=== PATIENT | female | born 1970 | race Two or more races ===

== ENCOUNTER → 2024-09-16 | Outpatient (CLI) | payer BC, SELFPAY ==
[2024-09-16 15:14] LABS: Hematocrit 39.1 % (37-47); Hemoglobin 12.9 g/dL (12.0-15.0); Immature Granulocytes Count 0.020 X10^3/uL (0.0-0.0); Mean Corp Hgb Conc 33.0 g/dL (32-36); Mean Corpuscular Volume 89.5 fL (81-99); Mean Platelet Vol. 10.6 fl (6.2-12.0); NRBC Flagged by Analyzer 0 % (0-5); Platelet Count 267 K/mm3 (150-450); RBC Distribution Width CV 12.5 % (11.6-14.6); RBC Distribution Width SD 40.7 fl (35.1-43.9); Red Blood Count 4.37 M/mm3 (4.2-5.4); White Blood Count 6.0 K/mm3 (4.4-11.0)
[2024-09-16 15:47] LABS: AST(SGOT) 19 U/L (<=31); Alanine Aminotransfer ALT/SGPT 13 U/L (<=34); Albumin, Serum 4.4 g/dL (3.5-5.0); Alkaline Phosphatase 71 U/L (35-104); Anion Gap 13 (5-15); BUN 15 mg/dL (4-19); BUN/Creat Ratio 20.6 RATIO (10-20); Calcium,Total 9.5 mg/dL (7.6-11.0); Carbon Dioxide 24.5 mmol/L (21.0-32.0); Chloride 103 mmol/L (98-108); Globulin 3.3 g/dL (2.2-4.2); Glucose 104 mg/dL (70-99); Potassium 3.7 mmol/L (3.3-5.1); Vitamin B12 584 pg/mL (180-914); Vitamin D,25 Hydroxy 38.8 ng/mL (30-100)
== END | disposition home or self-care (01) ==
LOC: MFPLAB 11:56
PROVIDERS: PCP Family Medicine; Referring Provider Family Medicine; Visit Provider Family Medicine
DX: R73.09 Other abnormal glucose (principal); R53.83 Other fatigue
CPT/HCPCS: 36415; 80053; 82306; 82607; 83036; 84439; 84443; 85025

== ENCOUNTER → 2024-10-20 | Outpatient (CLI) | payer BC, SELFPAY ==
--- NOTE | 2024-10-20 16:05 | BI_ITS ---
EXAM: SCRN MAMM (CAD)W/ELENA BILAT DATE: 10/20/2024 CLINICAL HISTORY: F, Age 54 y/o , SCREENING Sister with breast cancer. TECHNIQUE: SCRN MAMM (CAD)W/ELENA BILAT COMPARISON: No prior studies available for comparison at this time. FINDINGS: TISSUE DENSITY: The breasts are heterogeneously dense, which may obscure small masses. Bilateral Breast Mammographic Findings: No significant masses, calcifications or other abnormalities are identified. Small benign-appearing bilateral axillary lymph nodes. No suspicious masses, areas of developing architectural distortion, or suspicious calcifications. BI/SCRN MAMM (CAD)W/ELENA BILAT IMPRESSION: Negative mammogram. OVERALL FINAL ASSESSMENT BI-RADS 2: BENIGN RECOMMENDATION: Routine annual follow-up in 1 Year A letter with findings and recommendations will be mailed to the patient. Reading Location: [id number]
--- NOTE | 2024-10-20 16:07 | BD_ITS ---
PROCEDURE: DEXA BONE DENSITY STUDY 10/20/2024 REASON FOR EXAM: F, age 54 y/o . Postmenopausal. TECHNIQUE: DEXA BONE DENSITY STUDY COMPARISON: None FINDINGS: BMD and T-SCORES Lumbar spine: 0.998 g/cm2, T-score -0.4 Levels: L1 through L4 Left femoral neck: 0.728 g/cm2, T-score -1.1 Femoral neck comparison data not recommended for monitoring change. Left total hip: 0.859 g/cm2, T-score -0.7 Right femoral neck: 0.781 g/cm2, T-score -0.6 Femoral neck comparison data not recommended for monitoring change. Right total hip: 0.863 g/cm2, T-score -0.6 The World Health Organization has defined the following categories based on bone density: Normal bone density: T-score equal to or greater than -1.0 Osteopenia: T-score between -1.0 and -2.5 Osteoporosis: T-score equal to or less than -2.5 FRAX (or Comparable) Fracture Risk Assessment: 10 Year Probability of Fracture: Major Osteoporotic Fracture: 5.7% Hip Fracture: 0.3% (Note: FRAX is not to be reported in setting of normal range bone density, osteoporosis on DEXA, known history of osteoporosis, prior osteoporotic hip or vertebral fracture, or for any patient undergoing pharmacological treatment for bone loss.) The National Osteoporosis Foundation (NOF) recommends pharmacological treatment for patients with a FRAX 10-year risk of 3% or higher for a hip fracture, or 20% or higher for a major osteoporotic fracture, to prevent osteoporosis and reduce fracture risk. The patient does not meet the pharmacological treatment recommendations for prevention of osteoporosis. BD/Dexa Bone Density Study IMPRESSION: OSTEOPENIA. Recommend follow-up as clinically warranted. Reading Location: [facility]
== END | disposition home or self-care (01) ==
LOC: OPBD 16:03
PROVIDERS: PCP Family Medicine; Referring Provider Nurse Practitioner Family; Visit Provider Nurse Practitioner Family
DX: Z12.31 Encounter for screening mammogram for malignant neoplasm of breast (principal); Z78.0 Asymptomatic menopausal state
CPT/HCPCS: 77063; 77067; 77080

== ENCOUNTER → 2024-10-20 | Outpatient (CLI) | payer BC, SELFPAY ==
[2024-10-20 13:18] LABS: Cholesterol 214 mg/dL (<=200); Low Density Lipoprotein Calc. 143 mg/dL; Triglycerides 91 mg/dL; Very Low Density Lipoprotein 18 mg/dL (5-40); cholesterol:hdl ratio screen 4.07
--- OUTSIDE RECORDS SUMMARY | 2024-10-20 13:40 | XMS RPT_ITS | CCD ---
Author Organization [facility] Care Team Providers Care Ink Printer Name Role Phone Selam ZIMMERMAN, Dr. Justino Flower Primary Care Provider Selam ZIMMERMAN, Dr. Justino Flower Attending Provider Selam ZIMMERMAN, Dr. Justino Flower Referring Provider Justino Doss Primary Care Unavailable Steve HIM TECH, Ada Referring Unavailable Steve HIM TECH, Ada Attending Unavailable Justino Doss Referring Unavailable Justino Dsos Attending Unavailable Justino Doss Primary Care Unavailable Medications Current Medications Medication Drug Class(es) Dates Sig (Normalized) Sig (Original) azithromycin 250 mg oral tablet (1 source) Macrolide Antimicrobial Start: 4 Azithromycin 250 mg tablet Active 250 mg PO daily 6 0 September 21, 2023 12:00am 2 tablets today, then 1 tablet daily on days 2 through 5 benzonatate 100 mg oral capsule (1 source) Non-narcotic Antitussive Start: 4 take 1 capsule by mouth three times daily as needed for cough Benzonatate 100 mg capsule Active 100 mg PO THREE TIMES A DAY as needed for cough 20 0 September 21, 2023 12:00am methylPREDNISolone 4 mg oral tablet (1 source) Corticosteroid Start: 4 take 1 tablet by mouth once Methylprednisolone (Medrol (Brannon)) 4 mg tablets,dose pack Active 0 PO per package directions 21 September 21, 2023 12:00am PO PER PKG DIR Problems Problem Classification Problem Date Documented Da te Episodic/Chronic Diabetes mellitus without complication (1 source) Other abnormal glucose; Translations: [Other abnormal glucose] Onset: 09-21-2024 Episodic Other screening for suspected conditions (not mental disorders or infectious disease) (1 source) Encounter for screening mammogram for malignant neoplasm of breast; Translations: [Encounter for screening mammogram for malignant neoplasm of breast] Onset: 10-15-2024 Episodic Unclassified (1 source) Patient condition finding 09-21-2023 Results Test Name Value Interpretation Reference Range Facility Hemoglobin A1con 09-17-2024 HbA1c (Bld) [Mass fraction] 5.9 % High <=5.6 [facility] Comment on above: Order Comment: SHANNON Flower ADD A1C TO BLOOD DRAWN 09/16/24 PER Result Comment: Norm al < 5.7 % Prediabetic 5.7 - 6.4 % Diabetic >or= 6.5 % Please note range changes. Performed By: #### L 503.0106, L501.9985, L506.1001 #### [facility] [address] [place], [address] Absolute lymphocyte countOrd ered By: Justino Doss on 09-16-2024 Lymphocytes Auto (Unsp spec) [#/Vol] 2.31 10*3/uL 0.83-4.51 [facility] Absolute neutrophil countOrd ered By: Justino Doss on 09-16-2024 Neutrophils (Bld) [#/Vol] 2.8 10*3/uL 2.0-7.7 [facility] Anion gap in Serum or Plasma Ordered By: Justino Doss on 09-16-2024 Anion gap [Moles/Vol] 13 mmol/L 5-15 [facility] Automated lymphocyte count a s percentage of total leukocytesOrdered By: Justino Doss on 09-16-2024 Lymphocytes/100 WBC Auto (Unsp spec) 38.5 % 19-41 [facility] BUN/creatinine ratioOrdered By: Justino Doss on 09-16-2024 Urea nitrogen/Creatinine [Mass ratio] 20.6 mg/mg High 10-20 [facility] Basophil percentageOrdered B y: Justino Doss on 09-16-2024 Basophils/100 WBC (Bld) 0.5 % 0-1 [facility] Bilirubin, totalOrdered By: Justino Doss on 09-16-2024 Bilirubin [Mass/Vol] 0.38 mg/dL 0.00-1.30 [facility] CBC W/Diff, Automatedon 07- Absolute Lymph 2.31 X10 3/uL Normal 0.83-4.51 [facility] Comment on above: Order Comment: Order Date: 09/16/24 Order Info: 0184-1 - CBCD Performed By: #### L [id number], L500.4050, L506.0400, L100.0100 #### [facility] [address] [place], [address] Absolute Neut 2.8 X10 3/uL Normal 2.0-7.7 [facility] Comment on above: Order Comment: Order Date: 09/16/24 Order Info: 0184-1 - CBCD Performed By: #### L [id number], L500.4050, L506.0400, L100.0100 #### [facility] [address] [place], [address] Basophils/100 WBC (Bld) 0.5 % Normal 0-1 [facility] Comment on above: Order Comment: Order Date: 09/16/24 Order Info: 0184-1 - CBCD Performed By: #### L [id number], L500.4050, L506.0400, L100.0100 #### [facility] [address] [place], [address] Eosinophils/100 WBC (Bld) 4.7 % Normal 0-5 [facility] Comment on above: Order Comment: Order Date: 09/16/24 Order Info: 0184-1 - CBCD Performed By: #### L [id number], L500.4050, L506.0400, L100.0100 #### [facility] [address] [place], [address] Erythrocyte distribution width (RBC) [Ratio] 12.5 % Normal 11.6-14.6 [facility] Comment on above: Order Comment: Order Date: 09/16/24 Order Info: 0184-1 - CBCD Performed By: #### L [id number], L500.4050, L506.0400, L100.0100 #### [facility] [address] [place], [address] Hematocrit (Bld) [Volume fraction] 39.1 % Normal 37-47 [facility] Comment on above: Order Comment: Order Date: 09/16/24 Order Info: 0184-1 - CBCD Performed By: #### L [id number], L500.4050, L506.0400, L100.0100 #### [facility] [address] [place], [address] Hemoglobin (Bld) [Mass/Vol] 12.9 g/dL Normal 12.0-15.0 [facility] Comment on above: Order Comment: Order Date: 09/16/24 Order Info: 0184-1 - CBCD Performed By: #### L [id number], L500.4050, L506.0400, L100.0100 #### [facility] [address] [place], [address] IG% 0.300 Normal 0.0-0.9 [facility] Comment on above: Order Comment: Order Date: 09/16/24 Order Info: 0184-1 - CBCD Result Comment: IG% - Immature Granulocytes (promyelocytes, myelocytes and metamyelocytes) > 1% indicates that a LEFT SHIFT is Present. Performed By: #### L 501.9520, L500.4050, L506.0400, L100.0100 #### [facility] [address] [place], [address] Lymphocytes/100 WBC (Bld) 38.5 % Normal 19-41 [facility] Comment on above: Order Comment: Order Date: 09/16/24 Order Info: 0184-1 - CBCD Performed By: #### L [id number], L500.4050, L506.0400, L100.0100 #### [facility] [address] [place], [address] MCH (RBC) [Entitic mass] 29.5 pg Normal 27.0-32.0 [facility] Comment on above: Order Comment: Order Date: 09/16/24 Order Info: 0184-1 - CBCD Performed By: #### L 501.9520, L500.4050, L506.0400, L100.0100 #### [facility] [address] [place], [address] MCHC (RBC) [Mass/Vol] 33.0 g/dL Normal 32-36 [facility] Comment on above: Order Comment: Order Date: 09/16/24 Order Info: 0184-1 - CBCD Performed By: #### L [id number], L500.4050, L506.0400, L100.0100 #### [facility] [address] [place], [address] MCV (RBC) [Entitic vol] 89.5 fL Normal 81-99 [facility] Comment on above: Order Comment: Order Date: 09/16/24 Order Info: 0184- - CBCD Performed By: #### L 501.9520, L500.4050, L506.0400, L100.0100 #### [facility] [address] [place], [address] Monocytes/100 WBC (Bld) 9.7 % Normal 0-10 [facility] Comment on above: Order Comment: Order Date: 09/16/24 Order Info: 0184-1 - CBCD Performed By: #### L 501.9520, L500.4050, L506.0400, L100.0100 #### [facility] [address] [place], [address] Neutrophils/100 WBC (Bld) 46.3 % Low 47-70 [facility] Comment on above: Order Comment: Order Date: 09/16/24 Order Info: 0184-1 - CBCD Performed By: #### L 501.9520, L500.4050, L506.0400, L100.0100 #### [facility] [address] [place], [address] Nucleated RBC (Bld) [#/Vol] 0 10*3/uL Normal 0-5 [facility] Comment on above: Order Comment: Order Date: 09/16/24 Order Info: 0184-1 - CBCD Performed By: #### L 501.9520, L500.4050, L506.0400, L100.0100 #### [facility] [address] [place], [address] Platelet mean volume (Bld) [Entitic vol] 10.6 fL Normal 6.2-12.0 [facility] Comment on above: Order Comment: Order Date: 09/16/24 Order Info: 0184-1 - CBCD Performed By: #### L 501.9520, L500.4050, L506.0400, L100.0100 #### [facility] [address] [place], [address] Platelets (Bld) [#/Vol] 267 10*3/uL Normal 150-450 [facility] Comment on above: Order Comment: Order Date: 09/16/24 Order Info: 0184-1 - CBCD Performed By: #### L 501.9520, L500.4050, L506.0400, L100.0100 #### [facility] [address] [place], [address] RBC (Bld) [#/Vol] 4.37 10*6/uL Normal 4.2-5.4 [facility] Comment on above: Order Comment: Order Date: 09/16/24 Order Info: 0184-1 - CBCD Performed By: #### L 501.9520, L500.4050, L506.0400, L100.0100 #### [facility] [address] [place], [address] RDW SD 40.7 fl Normal 35.1-43.9 [facility] Comment on above: Order Comment: Order Date: 09/16/24 Order Info: 0184-1 - CBCD Performed By: #### L 501.9520, L500.4050, L506.0400, L100.0100 #### [facility] [address] [place], [place], [id number] WBC (Bld) [#/Vol] 6.0 10*3/uL Normal 4.4-11.0 [facility] Comment on above: Order Comment: Order Date: 09/16/24 Order Info: 0184-1 - CBCD Performed By: #### L 501.9520, L500.4050, L506.0400, L100.0100 #### [facility] [address] [place], [place], [id number] Carbon dioxide, total [Moles /volume] in Central venous bloodOrdered By: Justino Doss on 09-16-2024 CO2 [Moles/Vol] 24.5 mmol/L 21.0-32.0 [facility] Chloride assayOrdered By: Amalia Doss on 09-16-2024 Chloride [Moles/Vol] 103 mmol/L 98-108 [facility] Comprehensive Metabolic Prof ilon 09-16-2024 Albumin [Mass/Vol] 4.4 g/dL Normal 3.5-5.0 [facility] Comment on above: Order Comment: Order Date: 09/16/24 Order Info: 0786-1 - CMP Order Info: 3016-3 - TSH Order Info: 3024-7 - T4F Performed By: #### L 501.9520, L500.4050, L506.0400, L100.0100 #### [facility] [address] [place], [address] Albumin/Globulin [Mass ratio] 1.3 {ratio} Normal 0.9-2.4 [facility] Comment on above: Order Comment: Order Date: 09/16/24 Order Info: 07861 - CMP Order Info: 3 - TSH Order Info: 3024-7 - T4F Performed By: #### L 501.9520, L500.4050, L506.0400, L100.0100 #### [facility] [address] [place], [address] ALK PHOS 71 U/L Normal 35-104 [facility] Comment on above: Order Comment: Order Date: 09/16/24 Order Info: 0786-1 - CMP Order Info: 3 - TSH Order Info: 4-7 - T4F Performed By: #### L 501.9520, L500.4050, L506.0400, L100.0100 #### [facility] [address] [place], [address] ALT [Catalytic activity/Vol] 13 U/L Normal <=34 [facility] Comment on above: Order Comment: Order Date: 09/16/24 Order Info: 0786 - CMP Order Info: 3 - TSH Order Info: 47 - T4F Performed By: #### L 501.9520, L500.4050, L506.0400, L100.0100 #### [facility] [address] [place], [address] AST [Catalytic activity/Vol] 19 U/L Normal <=31 [facility] Comment on above: Order Comment: Order Date: 09/16/24 Order Info: 0786-1 - CMP Order Info: 3015-3 - TSH Order Info: 3024-7 - T4F Performed By: #### L 501.9520, L500.4050, L506.0400, L100.0100 #### [facility] [address] [place], [address] Bilirubin [Mass/Vol] 0.38 mg/dL Normal 0.00-1.30 [facility] Comment on above: Order Comment: Order Date: 09/16/24 Order Info: 0786-1 - CMP Order Info: 3015-3 - TSH Order Info: 3024-7 - T4F Performed By: #### L 501.9520, L500.4050, L506.0400, L100.0100 #### [facility] [address] [place], [address] BUN/CRE 20.6 RATIO High 10-20 [facility] Comment on above: Order Comment: Order Date: 09/16/24 Order Info: 0786-1 - CMP Order Info: 6-3 - TSH Order Info: 3024-7 - T4F Performed By: #### L 501.9520, L500.4050, L506.0400, L100.0100 #### [facility] [address] [place], [address] Calcium [Mass/Vol] 9.5 mg/dL Normal 7.6-11.0 [facility] Comment on above: Order Comment: Order Date: 09/16/24 Order Info: 0786-1 - CMP Order Info: 3 - TSH Order Info: 3024-7 - T4F Performed By: #### L 501.9520, L500.4050, L506.0400, L100.0100 #### [facility] [address] [place], [address] Chloride [Moles/Vol] 103 mmol/L Normal 98-108 [facility] Comment on above: Order Comment: Order Date: 09/16/24 Order Info: 0786-1 - CMP Order Info: 6-3 - TSH Order Info: 3024-7 - T4F Performed By: #### L 501.9520, L500.4050, L506.0400, L100.0100 #### [facility] [address] [place], [address] CO2 [Moles/Vol] 24.5 mmol/L Normal 21.0-32.0 [facility] Comment on above: Order Comment: Order Date: 09/16/24 Order Info: 0786-1 - CMP Order Info: 3 - TSH Order Info: 3024-7 - T4F Performed By: #### L 501.9520, L500.4050, L506.0400, L100.0100 #### [facility] [address] [place], [address] Creatinine [Mass/Vol] 0.75 mg/dL Normal 0.70-1.20 [facility] Comment on above: Order Comment: Order Date: 09/16/24 Order Info: 785-1 - CMP Order Info: 3 - TSH Order Info: 7 - T4F Performed By: #### L 501.9520, L500.4050, L506.0400, L100.0100 #### [facility] [address] [place], [address] GAP 13 Normal 5-15 [facility] Comment on above: Order Comment: Order Date: 09/16/24 Order Info: 0786-1 - CMP Order Info: 3 - TSH Order Info: 7 - T4F Performed By: #### L 501.9520, L500.4050, L506.0400, L100.0100 #### [facility] [address] [place], [address] GFR/1.73 sq M.predicted among non-blacks MDRD (S/P/Bld) [Vol rate/Area] 95 mL/min/{1.73_m2} Normal >60 [facility] Comment on above: Order Comment: Order Date: 09/16/24 Order Info: 0786-1 - CMP Order Info: 6-3 - TSH Order Info: 3024-7 - T4F Result Comment: mL/m in/1.73m2 CKD-EPI Creatinine Equation (2020) Performed By: #### L 501.9520, L500.4050, L506.0400, L100.0100 #### [facility] [address] [place], [address] Globulin (S) [Mass/Vol] 3.3 g/dL Normal 2.2-4.2 [facility] Comment on above: Order Comment: Order Date: 09/16/24 Order Info: 07- - CMP Order Info: 3 - TSH Order Info: 3027 - T4F Performed By: #### L 501.9520, L500.4050, L506.0400, L100.0100 #### [facility] [address] [place], [address] Glucose [Mass/Vol] 104 mg/dL High 70-99 [facility] Comment on above: Order Comment: Order Date: 09/16/24 Order Info: 785-02 - CMP Order Info: 3015-04 - TSH Order Info: 7 - T4F Performed By: #### L 501.9520, L500.4050, L506.0400, L100.0100 #### [facility] [address] [place], [address] Potassium [Moles/Vol] 3.7 mmol/L Normal 3.3-5.1 [facility] Comment on above: Order Comment: Order Date: 09/16/24 Order Info: 07 - CMP Order Info: 3 - TSH Order Info: 3027 - T4F Performed By: #### L 501.9520, L500.4050, L506.0400, L100.0100 #### [facility] [address] [place], [address] Sodium [Moles/Vol] 140 mmol/L Normal 133-145 [facility] Comment on above: Order Comment: Order Date: 09/16/24 Order Info: 07-1 - CMP Order Info: 3015-04 - TSH Order Info: 3024-7 - T4F Performed By: #### L 501.9520, L500.4050, L506.0400, L100.0100 #### [facility] [address] [place], [place], [id number] T PROT 7.7 g/dL Normal 5.9-8.4 [facility] Comment on above: Order Comment: Order Date: 09/16/24 Order Info: 0786-1 - CMP Order Info: 3016-3 - TSH Order Info: 3024-7 - T4F Performed By: #### L 501.9520, L500.4050, L506.0400, L100.0100 #### [facility] [address] [place], [place], [address] Urea nitrogen [Mass/Vol] 15 mg/dL Normal 4-19 [facility] Comment on above: Order Comment: Order Date: 09/16/24 Order Info: 0786-1 - CMP Order Info: 3016-3 - TSH Order Info: 30247 - T4F Performed By: #### L 501.9520, L500.4050, L506.0400, L100.0100 #### [facility] [address] [place], [place], [address] Eosinophil percentageOrdered By: Justino Doss on 09-16-2024 Eosinophils/100 WBC (Bld) 4.7 % 0-5 [facility] Erythrocyte distribution wid th ratioOrdered By: Justino Doss on 09-16-2024 Erythrocyte distribution width (RBC) [Ratio] 12.5 % 11.6-14.6 [facility] Erythrocyte distribution wid th standard deviationOrdered By: Justino Doss on 09-16-2024 Erythrocyte distribution width (RBC) [Ratio] 40.7 fl 35.1-43.9 [facility] Glomerular filtration rate ( GFR) estimation/1.73 sq m using serum, plasma, or whole bOrdered By: uJstino Doss on 09-16-2024 GFR/1.73 sq M.predicted among non-blacks MDRD (S/P/Bld) [Vol rate/Area] 95 mL/min/{1.73_m2} >60 [facility] Comment on above: mL/min/1.73m2 CKD-EP I Creatinine Equation (2020) Hematocrit Auto (Bld) [Volum e fraction]Ordered By: Justino Doss on 09-16-2024 Hematocrit (Bld) [Volume fraction] 39.1 % 37-47 [facility] Hemoglobin A1c percentageOrd ered By: Justino Doss on 09-16-2024 HbA1c (Bld) [Mass fraction] 5.9 % High <5.7 [facility] Comment on above: Normal < 5.7 % Predi abetic 5.7 - 6.4 % Diabetic >or= 6.5 % Please note range changes. Hemoglobin measurementOrdere d By: Justino Doss on 09-16-2024 Hemoglobin (Bld) [Mass/Vol] 12.9 g/dL 12.0-15.0 [facility] Immature granulocytes/100 WB C Auto (Bld)Ordered By: Justino Doss on 09-16-2024 Immature granulocytes/100 WBC (Bld) 0.300 % 0.0-0.9 [facility] Comment on above: IG% - Immature Granu locytes (promyelocytes, myelocytes and metamyelocytes) > 1% indicates that a LEFT SHIFT is Present. Laboratory - Chemistry and C hemistry - challengeOrdered By: Justino Doss on 09-16-2024 AST [Catalytic activity/Vol] 19 U/L <32 [facility] MCV (mean corpuscular volume ) determinationOrdered By: Justino Doss on 09-16-2024 MCV (RBC) [Entitic vol] 89.5 fL 81-99 [facility] Mean corpuscular hemoglobin (MCH) determinationOrdered By: Justino Doss on 09-16-2024 MCH (RBC) [Entitic mass] 29.5 pg 27.0-32.0 [facility] Mean corpuscular hemoglobin concentration (MCHC) determinationOrdered By: Justino Doss on 09-16-2024 MCHC (RBC) [Mass/Vol] 33.0 g/dL 32-36 [facility] Mean platelet volume determi nationOrdered By: Justino Doss on 09-16-2024 Platelet mean volume (Bld) [Entitic vol] 10.6 fL 6.2-12.0 [facility] Monocyte percentageOrdered B y: Justino Doss on 09-16-2024 Monocytes/100 WBC (Bld) 9.7 % 0-10 [facility] Neutrophil percentageOrdered By: Justino Doss on 09-16-2024 Neutrophils/100 WBC (Bld) 46.3 % Low 47-70 [facility] Nucleated red blood cell per centageOrdered By: Justino Doss on 09-16-2024 Nucleated RBC/100 WBC (Bld) [Ratio] 0 % 0-5 [facility] Platelet countOrdered By: Amalia Doss on 09-16-2024 Platelets (Bld) [#/Vol] 267 10*3/uL 150-450 [facility] Potassium measurement (mass/ volume)Ordered By: Justino Doss on 09-16-2024 Potassium (Unsp spec) [Mass/Vol] 3.7 mmol/L 3.3-5.1 [facility] RBC Auto (Bld) [#/Vol]Ordere d By: Justino Doss on 09-16-2024 RBC (Bld) [#/Vol] 4.37 10*6/uL 4.2-5.4 [facility] Serum creatinine measurement (mass/volume)Ordered By: Justino Doss on 09-16-2024 Creatinine [Mass/Vol] 0.75 mg/dL 0.70-1.20 [facility] Serum globulin measurementOr dered By: Justino Doss on 09-16-2024 Globulin (S) [Mass/Vol] 3.3 g/dL 2.2-4.2 [facility] Serum glucose measurement (m ass/volume)Ordered By: Justino Doss on 09-16-2024 Glucose [Mass/Vol] 104 mg/dL High 70-99 [facility] Serum or plasma alanine fischer otransferase (ALT) measurementOrdered By: Justino Doss on 09-16-2024 ALT [Catalytic activity/Vol] 13 U/L <35 [facility] Serum or plasma albumin tamika urement (mass/volume)Ordered By: Justino Doss on 09-16-2024 Albumin [Mass/Vol] 4.4 g/dL 3.5-5.0 [facility] Serum or plasma albumin/glob ulin mass ratioOrdered By: Justino Doss on 09-16-2024 Albumin/Globulin [Mass ratio] 1.3 {ratio} 0.9-2.4 [facility] Serum or plasma alkaline sherine sphatase measurementOrdered By: Justino Doss on 09-16-2024 ALP [Catalytic activity/Vol] 71 U/L 35-104 [facility] Serum or plasma calcium tamika urement (mass/volume)Ordered By: Justino Doss on 09-16-2024 Calcium [Mass/Vol] 9.5 mg/dL 7.6-11.0 [facility] Serum or plasma urea nitroge n measurement (mass/volume)Ordered By: Justino Doss on 09-16-2024 Urea nitrogen [Mass/Vol] 15 mg/dL 4-19 [facility] Sodium levelOrdered By: Justino Doss on 09-16-2024 Sodium [Moles/Vol] 140 mmol/L 133-145 [facility] T4 Free Directon 09-16-2024 T4 FREE DIRECT 1.20 ng/dL Normal 0.76-1.46 [facility] Comment on above: Order Comment: Order Date: 09/16/24 Order Info: 0786-1 - CMP Order Info: 3016-3 - TSH Order Info: 3024-7 - T4F Performed By: #### L 501.9520, L500.4050, L506.0400, L100.0100 #### [facility] [place], [address] T4 freeOrdered By: Justino reddy on 09-16-2024 Free T4 [Mass/Vol] 1.20 ng/dL 0.76-1.46 [facility] TSH DL <= 0.005 mIU/L QnOrde red By: Justino Doss on 09-16-2024 TSH Qn 2.100 uIU/mL 0.300-4.200 [facility] Thyroid Stim Hormone (TSH)on 09-16-2024 TSH 2.100 uIU/mL Normal 0.300-4.200 [facility] Comment on above: Order Comment: Order Date: 09/16/24 Order Info: 0786-1 - CMP Order Info: 3016-3 - TSH Order Info: 3024-7 - T4F Performed By: #### L 501.9520, L500.4050, L506.0400, L100.0100 #### [facility] [address] [place], [address] Total proteinOrdered By: Henok Doss on 09-16-2024 Protein [Mass/Vol] 7.7 g/dL 5.9-8.4 [facility] Vitamin B12on 09-16-2024 Cobalamin (Vitamin B12) [Mass/Vol] 584 pg/mL Normal 180-914 [facility] Comment on above: Order Comment: Order Date: 09/16/24 Order Info: 07861 - CMP Order Info: 3015-04 - TSH Order Info: 3023-08 - T4F Performed By: #### L 503.0106, L501.9985, L506.1001 #### [facility] [address] [place], [address] Vitamin B12 ser/plasOrdered By: Justino Doss on 09-16-2024 Cobalamin (Vitamin B12) [Mass/Vol] 584 pg/mL 180-914 [facility] Vitamin D,25 Hydroxyon 09-16 Vitamin D 25-OH 38.8 ng/mL Normal 30-100 [facility] Comment on above: Order Comment: Order Date: 09/16/24 Order Info: 0786-1 - CMP Order Info: 3 - TSH Order Info: 3023-08 - T4F Result Comment: Danay min D Status Deficiency: <20 ng/mL (50nmol/L) Insufficiency: 20-30 ng/mL (50-75 nmol/L) Sufficiency: 30-100 ng/mL (75-250 nmol/L) Toxicity: >100 ng/mL (>250 nmol/L) Performed By: #### L 503.0106, L501.9985, L506.1001 #### [facility] [address] [place], [address] White blood cell (WBC) count Ordered By: Justino Doss on 09-16-2024 WBC (Bld) [#/Vol] 6.0 10*3/uL 4.4-11.0 [facility] Encounters Encounter Date Encounter Type Care Provider Facility Start: 10-20-2024 ambulatory Justino Doss Facilit y:[facility] Start: 09-16-2024 End: 09-16-[address] Justino Doss MD Work Phone: -Laboratory [facility] Start: 09-16-2024 End: 09-16-[address] Justino Doss MD -Laboratory [facility] Start: 09-16-2024 End: 09-16-2024 ambulatory Justino Doss Facility:[facility] Procedures Date Procedure Procedure Detail Performing Clinician Start: 09-16-2024 Vitamin D, 25-hydrox y measurement Dr. Justino Doss MD Work Phone: Comment on above: Vitamin D StatusDefi ciency: <20 ng/mL (50nmol/L)Insufficiency: 20-30 ng/mL (50-75 nmol/L)Sufficiency: 30-100 ng/mL (75-250 nmol/L)Toxicity: >100 ng/mL (>250 nmol/L) Payers Date Payer Category Payer Self-pay 2024 Unknown [id number] Unknown [id number] Unknown [id number] Social History Date Type Detail Facility Start: 09-21-2023 Tobacco smoking stat us SDIS Never smoked tobacco (finding) [facility] Start: 1970 Sex Assigned At Female [facility] Evaluation note Note Date & Type Note Facility Evaluation note No assessment information availa ble [facility] Work Phone: Reason for referral (narrative) Note Date & Type Note Facility Reason for referral (narrative) No reason for referral information available [facility] Work Phone: Summary Purpose Family History No Family History Records Found Advance Directives No Advanced Directives Records Found Additional Source Comments Care Teams (unrecognized sec tion and content) Team Status: Active Member Role/Relationship Status Dates Dr. Justino Doss MD Primary Care Provider Active Team Status: Inactive Member Role/Relationship Status Dates Dr. Justino Doss MD Primary Care Provider Active Start: September 16, 2024 End: September 16, 2024 Dr. Justino Doss MD Attending Provider Active Start: September 16, 2024 End: September 16, 2024 Dr. Justino Doss MD Referring Provider Active Start: September 16, 2024 End: September 16, 2024 Goals (unrecognized section and content) Goals may be documented in a n alternate section INFORMATION SOURCE (unrecogn ized section and content) DATE CREATED AUTHOR 10/17/2024 [facility] FOR RECORDS PERTAINING TO PATIENTS WHO ARE OR HAVE BEEN ENROLLED IN A CHEMICAL DEPENDENCY/SUBSTANCEABUSE PROGRAM, SOME INFORMATION MAY BE OMITTED. This clinical summary was aggregated from multiple sources. Caution should be exercised in using it in the provision of clinical care. This summary normalizes information from multiple sources, and as a consequence, information in this document may materially change the coding, format and clinical context of patient data. In addition, data may be omitted in some cases. CLINICAL DECISIONS SHOULD BE BASED ON THE PRIMARY CLINICAL RECORDS. [employer] [facility]. provides no warranty or guarantee of the accuracy or completeness of information in this document.
== END | disposition home or self-care (01) ==
PROVIDERS: PCP Family Medicine; Visit Provider Nurse Practitioner Family
DX: Z13.220 Encounter for screening for lipoid disorders (principal)
CPT/HCPCS: 36415; 80061